=== PATIENT | male | born 1940 | race Caucasian/White ===

== ENCOUNTER 2022-12-16 06:48 | Inpatient (IN) | payer MEDICARE ==
[2022-12-16] VITALS (13 sets, daily range): BP systolic 95–120; BP diastolic 40–93; PULSE 53–80; RESP 14–20; TEMP 97.5–98; O2SAT 94–100
[~2022-12-16] VITALS: Ht 162.6 cm; Wt 93.5 kg
[~2022-12-16 06:48] MED LIST: ALLO300T8 PO; AMLO10TA13 PO; ASPI-1071 PO; ATOR-2 PO; CELE100C99 PO; CETI10TA19 PO; CLOP-32 PO; FINA5TAB11 PO; FLO0.4C PO; Flax Seed Oil; HYDR25TA4 PO; ISOS30TA84 PO; LISI20TA28 PO; MELA10TA2 PO; NITR0.3T10; PRE5T PO; SAW450CA7 PO
[2022-12-16] MEDS ORDERED: normal saline 1,000 ML IV SCH (06:50)
[2022-12-16] MEDS ORDERED: diphenhydrAMINE 25mg capsule PO PRN (06:50)
[2022-12-16] MEDS ORDERED: heparin 1,000unit/ml 10ml vial 10 ML ONE ×2 (07:24→08:18)
[2022-12-16] MEDS ORDERED: LIDOcaine 1% (10mg/ml)w/preservative inj. 20ml MDV ONE (07:24)
[2022-12-16] MEDS ORDERED: iohexol 350MG/ML 100ml bottle IV ONE ×2 (07:24→08:47)
[2022-12-16] MEDS ORDERED: fentaNYL/PF 50MCG/1 ML 2ML syringe ONE ×2 (07:24→08:20)
[2022-12-16] MEDS ORDERED: midazolam 1 mg/ML 2ml injection ONE ×5 (07:24→08:58)
[2022-12-16 07:32] LABS: BASOPHILS % (AUTO) 0.2 % (0-1); EOSINOPHILS # (AUTO) 0.2 X10'3 (0-0.9); HEMATOCRIT 43.7 % (42.0-52.0); HEMOGLOBIN 14.6 g/dl (14.0-17.9); LYMPHOCYTES # (AUTO) 1.3 X10'3 (1.1-4.8); LYMPHOCYTES % (AUTO) 20.7 % (21-51); MEAN CORPUSCULAR HEMOGLOBIN 30.9 PG (27.0-31.0); MEAN CORPUSCULAR HGB CONC 33.5 g/dL (33.0-36.5); MEAN CORPUSCULAR VOLUME 92.3 FL (78-98); MEAN PLATELET VOLUME 9.4 FL (7.4-10.4); MONOCYTES # (AUTO) 0.6 X10'3 (0-0.9); MONOCYTES % (AUTO) 9.9 % (2-12); NEUTROPHILS # (AUTO) 4.3 X10'3 (1.8-7.7); NEUTROPHILS % (AUTO) 66.2 % (42-75); PLATELET COUNT 159 X10'3 (140-440); RED BLOOD COUNT 4.73 X10'6 (4.70-6.10); WHITE BLOOD COUNT 6.5 X10'3 (4.5-11.0)
[2022-12-16 07:36] LABS: PROTHROMBIN TIME 10.7 SECONDS (9.0-12.0)
[2022-12-16 07:39] LABS: ALBUMIN 3.5 G/DL (3.4-5.0); ANION GAP 9 (8-16); BLOOD UREA NITROGEN 20 MG/DL (7-18); BUN/CREATININE RATIO 21.5 (10.0-20.0); CALCIUM 9.4 MG/DL (8.5-10.1); CHLORIDE 103 MMOL/L (99-107); CREATININE 0.93 MG/DL (0.60-1.10); GLUCOSE 143 MG/DL (70-104); MAGNESIUM 1.9 MG/DL (1.5-2.4); POTASSIUM 3.5 MMOL/L (3.5-5.1); SODIUM 137 MMOL/L (135-145); TOTAL CARBON DIOXIDE 24.6 MMOL/L (24-32); eCRCL 50 ML/MIN; eGFR 77 ML/MIN
[2022-12-16] MEDS ORDERED: proCHLORperazine 10 MG/2 ml inj ONE (08:00)
[2022-12-16] MEDS ORDERED: dextrose 5% water 500ml 500 ML ONE (08:11)
[2022-12-16] MEDS ORDERED: ISOS30TA84 PO (08:32)
[2022-12-16] MEDS ORDERED: CLOP-32 PO (08:32)
[2022-12-16] MEDS ORDERED: atropine 0.1mg/ml 10ml syringe ONE (08:50)
[2022-12-16] MEDS ORDERED: epiNEPHrine 0.1mg/ml 10ml syringe ONE (08:50)
[2022-12-16] MEDS ORDERED: heparin 1,000 UNITS/NS 500ml 500 ML ONE (09:33)
[2022-12-16] MEDS ORDERED: protamine sulfate 10mg/ml inj. ONE (09:57)
[2022-12-16] MEDS ORDERED: ticagrelor 90mg tablet ONE (10:14)
[2022-12-16] MEDS ORDERED: ondansetron/PF 4mg/2ml inj IV PRN (10:50)
[2022-12-16] MEDS ORDERED: HYDROcodone/acetaminophen 10/325mg tab PO PRN (10:55)
[2022-12-16] MEDS ORDERED: proCHLORperazine 10 MG/2 ml inj IV PRN (10:55)
[2022-12-16] MEDS ORDERED: HYDROcodone/acetaminophen 5mg/325mg tablet PO PRN (10:55)
--- NOTE | 2022-12-16 14:00 | NUR ---
Patient in room PCU 3017. I have received report from Evangelista DE GUZMAN and had the opportunity to ask questions and assume patient care.
--- NOTE | 2022-12-16 18:30 | NUR ---
Patient in room PCU 3017. I have received report from Yelena (GAB) and had the opportunity to ask questions and assume patient care.
--- NOTE | 2022-12-16 18:37 | NUR ---
Problems reprioritized. Patient report given, questions answered & plan of care reviewed with Sammy DE GUZMAN, patient stable at transfer of care.
[2022-12-16] MEDS ORDERED: Melatonin 3mg tablet PO SCH (21:00)
[2022-12-17 02:00] VITALS: BP 105/52; PULSE 62; RESP 18; TEMP 97.6; O2SAT 95
[2022-12-17 06:00] VITALS: BP 137/62; PULSE 72; RESP 13; TEMP 97.8; O2SAT 94
--- NOTE | 2022-12-17 06:09 | NUR ---
Problems reprioritized. Patient report given, questions answered & plan of care reviewed with Ele (RN).
--- NOTE | 2022-12-17 06:41 | NUR ---
Patient in room PCU 3017. I have received report from Sammy DE GUZMAN and had the opportunity to ask questions and assume patient care.Pt awake and alert. Up to bathroom on his own. Looking forward to going home today. Addendum: 12/17/22 at 0642 by Ele Shirley RN Amended: Links added.
[2022-12-17] MEDS ORDERED: ASPI-1265 PO (07:15)
[2022-12-17] MEDS ORDERED: TICA90TA PO (07:15)
[2022-12-17 07:47] LABS: CHOL/HDL RATIO 2.4 (0.00-4.99); CHOLESTEROL 140 MG/DL (0-200); CREATININE 0.93 MG/DL (0.60-1.10); HDL CHOLESTEROL 58 MG/DL (35-60); LDL CHOLESTEROL 64 MG/DL (50-100); TRIGLYCERIDES 98 MG/DL (20-135); eCRCL 50 ML/MIN; eGFR 77 ML/MIN
[2022-12-17] MEDS ORDERED: finasteride 5mg tablet PO SCH (08:00)
[2022-12-17] MEDS ORDERED: atorvastatin 20mg tablet PO SCH (08:00)
[2022-12-17] MEDS ORDERED: HYDROchlorothiazide 25mg tablet PO SCH (08:00)
[2022-12-17] MEDS ORDERED: tamsulosin 0.4mg capsule PO SCH (08:00)
[2022-12-17] MEDS ORDERED: celeCOXIB 100mg capsule PO SCH (08:00)
[2022-12-17] MEDS ORDERED: isosorbide mononitrate 30mg tab.SR.24H PO SCH (08:00)
[2022-12-17] MEDS ORDERED: ticagrelor 90mg tablet PO SCH (08:00)
[2022-12-17] MEDS ORDERED: lisinopril 20mg tablet PO SCH (08:00)
[2022-12-17] MEDS ORDERED: amLODIPine 5mg tablet PO SCH (08:00)
[2022-12-17] MEDS ORDERED: allopurinol 300 MG tablet PO SCH (08:00)
[2022-12-17] MEDS ORDERED: cetirizine 10mg tablet PO SCH (08:00)
[2022-12-17] MEDS ORDERED: aspirin 81mg, enteric-coated 1 TAB TABLET.DR PO SCH (08:00)
[2022-12-17] MEDS ORDERED: SAW PALMETTO FRUIT 450 MG PO SCH (08:00)
[2022-12-17] MEDS ORDERED: predniSONE 5mg tablet PO SCH (08:00)
[2022-12-17 08:56] VITALS: BP_SYST 136; PULSE 72
--- NOTE | 2022-12-17 10:10 | NUR ---
All written and verbal orders for D/C given. All questions answered, Pt stated he had all belongings, home with . Addendum: 12/17/22 at 1108 by Ele Shirley RN Amended: Links added.
== END 2022-12-17 12:13 | disposition home or self-care (01) | DRG 218 ==
LOC: SSTAY O 06:48 → EDSTATUS 08:00 → PCU 3S 10:45
PROVIDERS: ADMIT Internal Medicine Cardiovascular Disease; ATTEND Internal Medicine Cardiovascular Disease
PROC: 027135Z Dilation of Coronary Artery, Two Arteries with Two Drug-eluting Intraluminal Devices, Percutaneous Approach (ICD-10-PCS; principal; 2022-12-16)
PROC: 02HA3RJ Insertion of Short-term External Heart Assist System into Heart, Intraoperative, Percutaneous Approach (ICD-10-PCS; 2022-12-16)
PROC: B2111ZZ Fluoroscopy of Multiple Coronary Arteries using Low Osmolar Contrast (ICD-10-PCS; 2022-12-16)
PROC: 5A0221D Assistance with Cardiac Output using Impeller Pump, Continuous (ICD-10-PCS; 2022-12-16)
PROC: B41F1ZZ Fluoroscopy of Right Lower Extremity Arteries using Low Osmolar Contrast (ICD-10-PCS; 2022-12-16)
DX: I25.119 Atherosclerotic heart disease of native coronary artery with unspecified angina pectoris (principal); I10 Essential (primary) hypertension; N40.0 Benign prostatic hyperplasia without lower urinary tract symptoms; E78.00 Pure hypercholesterolemia, unspecified; M19.90 Unspecified osteoarthritis, unspecified site; J44.9 Chronic obstructive pulmonary disease, unspecified; N20.0 Calculus of kidney; R01.1 Cardiac murmur, unspecified; Z96.651 Presence of right artificial knee joint; Z87.891 Personal history of nicotine dependence; I25.2 Old myocardial infarction; Z87.442 Personal history of urinary calculi; Z95.5 Presence of coronary angioplasty implant and graft; Z91.040 Latex allergy status
CPT/HCPCS: 33990; 33992; C9600; 36415; 80048; 80061; 82565; 83735; 85025; 85347; 85610; 86885; 86900; 86901; 93005; 99152; 99153; A6258; C1725; C1751; C1753; C1760; C1769; C1874; C1894; G0378; J0171; J0461; J0780; J1644; J2250; J2720; J3010; J3490; J7030; J7060; J7512; Q9967